=== PATIENT | female | born 1960 | race Caucasian/White ===

== ENCOUNTER 2023-05-29 13:21 | Outpatient (RCR) | payer BC, SELFPAY ==
[2023-05-29 13:36] VITALS: BP 165/98
[2023-05-29] MEDS: RECLAST 100 IV (13:50)
[2023-05-29 14:51] VITALS: BP 147/82
== END 2023-06-15 23:59 | disposition home or self-care (01) ==
LOC: OID 13:21
PROVIDERS: ATTENDING PHYSICIAN Internal Medicine Endocrinology, Diabetes & Metabolism; FAMILY PHYSICIAN Family Medicine
DX: M81.0 Age-related osteoporosis without current pathological fracture (principal)
CPT/HCPCS: 96365; J3489